=== PATIENT | female | born 1995 | race Caucasian/White ===

== ENCOUNTER 2025-05-11 16:28 | Emergency (ER) | payer MEDICAID, SELFPAY ==
[2025-05-11 16:34] VITALS: BP 123/78
[2025-05-11 17:03] LABS: Hematocrit 34.9 % (37.0-47.0); Hemoglobin 11.9 g/dL (12.0-16.0); Mean Corp Hgb Conc. 34.1 g/dL (33.0-37.0); Mean Corpuscular Volume 85.1 fL (81.0-99.0); Nucleated Red Blood Cells % 0 %; Platelet Count 251 10^3/uL (130-400); Red Cell Dist. Width 13.9 % (11.5-14.5)
[2025-05-11 17:21] LABS: ALT (SGPT) 12 U/L (0-35); AST (SGOT) 16 U/L (14-36); Albumin 4.6 g/dl (3.5-5.0); Alkaline Phosphatase 48 U/L (38-126); Blood Urea Nitrogen 11 mg/dl (7-17); Calcium 9.3 mg/dl (8.4-10.2); Carbon Dioxide 24 mmol/L (22-30); Chloride 107 mmol/L (98-107); Glucose 97 mg/dl (70-99); Potassium 4.3 mmol/L (3.5-5.1); Sodium 137 mmol/L (135-145); Total Protein 7.4 g/dl (6.3-8.2); eGFR > 60.00
[2025-05-11 17:41] LABS: Beta HCG Quantitative 504.81 mIU/ml
[2025-05-11 18:11] VITALS: BP 111/63; BMI 22.3
--- NOTE | 2025-05-11 18:30 | ED.GENMED ---
History of Present Illness
General
Chief Complaint: Vaginal Bleeding
Time Seen by Provider: 05/11/25 18:11
History of Present Illness
History of Present Illness:
29-year-old female presents to the emergency department for evaluation of vaginal bleeding and lower abdominal cramping for the past 3 to 4 days. She is approximate 5 weeks 6 days gestational age, last menstrual cycle was April 02. She was seen at
[facility] emergency department 2 days ago at which time she had an ultrasound revealing an irregular cystic structure in the endometrium with no yolk sac or pole. She had an hCG level of 1049 at that time. From the records I do not see a
hemoglobin count at that time. She states the bleeding has slightly increased but she has not required any pad change at all today. No prior pregnancies. No prior abdominal surgeries. Not on blood thinners. Has not yet established with PROCESS MAINTENANCE TECHNICIAN.
Review of Systems
Review of Systems
Allergies reviewed?: Yes
All Other Systems: ROS reviewed and negative except as documented in HPI and ROS
Phy Exam
Physical Exam
Physical Exam:
GEN: Well appearing, NAD, WDWN
HEENT: Oral mucosa moist, no scleral icterus
Cardiac: Regular rate
Lung: No respiratory distress, no tachypnea
MSK: No gross deformity or injuries
Skin: Good color, no pallor or jaundice, no rashes
Neuro: AO x3, moves all extremities freely
Psych: Calm, cooperative
Course
Orders/Labs/Results
Orders:
Orders
05/11/25 16:42
Comprehensive Metabolic Panel Urgent
05/11/25 16:43
Blood Group&Type Urgent
BBK Wristband Number:
Complete Blood Count/With Diff Urgent
HCG, Beta Quantitative [Beta HCG Quantitative] Urgent
Is this a screen?: No
Abnormal Lab Results
05/11/25 05/11/25
16:42 16:43
RBC 4.10 L 10^6/uL
(4.20-5.40)
Hgb 11.9 L g/dL
(12.0-16.0)
Hct 34.9 L %
(37.0-47.0)
MPV 10.6 H fL
(7.4-10.4)
Creatinine 0.4 L mg/dL
(0.6-1.0)
05/11/25 16:43
05/11/25 16:42
Vital Signs
Initial and Last Documented VS:
Initial Vital Signs
Temp Pulse Resp BP Pulse Ox
97.9 F 93 18 123/78 100
05/11/25 16:34 05/11/25 16:34 05/11/25 16:34 05/11/25 16:34 05/11/25 16:34
Last Documented Vital Signs
Temp Pulse Resp BP Pulse Ox
97.9 F 63 20 111/63 100
05/11/25 18:44 05/11/25 18:44 05/11/25 18:44 05/11/25 18:44 05/11/25 18:44
MDM/Problems Addressed
MDM/Problems Addressed:
Unfortunately given the drop in hCG levels, coupled with irregular US result from [facility], highly suspicious for inevitable miscarriage. Her bleeding volume does not appear to be excessive at this point. Encouraged close outpatient f/u with
OBGYN
*Pulse Oximetry
SaO2: 100
Oxygen Mode of Delivery: Room air
Patient hypoxic: no
*Critical Care Note
Total Time (30-74mins, 75-104mins- exclusive of procedures): Not Applicable
ED Attending Note
-
Portions of this chart may have been created with voice recognition software.� Occasional wrong word or��sound alike� substitutions may have occurred due to the inherent limitations of voice recognition software.
Discharge Plan
Departure
Patient Disposition: Home (Routine Discharge)
Date of Disposition: 05/11/25
Time of Disposition: 18:38
Patient with high blood pressure during this ER visit?: No
Discharge Problem:
Incomplete inevitable
Instructions: Miscarriage (DC)
Referrals:
Kathy Kuo, DO [Active, Gynecology]
Activity Restrictions/Additional Instructions:
Please follow-up with PROCESS MAINTENANCE TECHNICIAN as listed on your paperwork
If bleeding increases to be more than 1 pad per hour return to the emergency department for reevaluation
Interventions
Interventions:
*Risk Screen - Suicide Last Done: 05/11/25 16:38
*General Assessment Last Done: 05/11/25 16:38
*Neglect/Abuse Screening Last Done: 05/11/25 18:14
*ED- Fall Risk Assessment Last Done: 05/11/25 18:14
*ED COVID-19 Vaccine History Last Done: 05/11/25 16:38
*Nursing Disposition Last Done: 05/11/25 18:44
ED-Female Genitourinary Assessment Last Done: 05/11/25 18:14
Discharge Date and Time
Discharge Date/Time: 05/11/25 18:46
Print Language: BRUNEIAN
[2025-05-11 18:44] VITALS: BP 111/63
== END 2025-05-11 18:46 | disposition home or self-care (01) ==
LOC: EMR 16:28
PROVIDERS: EMERGENCY PHYSICIAN Emergency Medicine
DX: O03.4 Incomplete spontaneous abortion without complication (principal)
CPT/HCPCS: 99283; 80053; 84702; 85025; 86900; 86901